=== PATIENT | male | born 1965 | race Caucasian/White ===

== ENCOUNTER → 2017-05-17 | Outpatient (CLI) | payer BC ==
[~2017-05-17] VITALS: Ht 167.6 cm; Wt 64.4 kg
[2017-05-17 14:55] VITALS: BP 126/84
--- NOTE | 2017-05-17 16:20 | Diagnostic Imaging Report ---
INDICATION: PICC line placement. FINDINGS: PICC line has been placed on the right since previous exam on 08/22/2007. Tip is overlying the superior vena caval shadow at the cavoatrial junction. The lungs are well aerated. There are no infiltrates. No pneumothorax or pleural effusion. Heart is not enlarged. IMPRESSION: Satisfactory right PICC line position. Dictated by: Dictated on workstation # [id number]
[2017-05-17 16:28] VITALS: BP 126/84
== END ==
LOC: SDC 14:47
PROVIDERS: ATTEND Orthopaedic Surgery
DX: T84.52XA Infection and inflammatory reaction due to internal left hip prosthesis, initial encounter (principal); Z96.642 Presence of left artificial hip joint
CPT/HCPCS: 36569; 71045; 76937